=== PATIENT | female | born 1990 | race Caucasian/White ===

== ENCOUNTER 2023-04-01 13:40 | Emergency (ER) | payer SELFPAY ==
[~2023-04-01] VITALS: Ht 157.5 cm; Wt 69.0 kg
[2023-04-01] VITALS (8 sets, daily range): BP systolic 103–124; BP diastolic 49–71; PULSE 86–109; RESP 16; TEMP 98.6–99
[2023-04-01 16:22] LABS: BILIRUBIN,URINE NEGATIVE (Neg); CLARITY,URINE SLIGHTLY CLOUDY (Clear); COLOR,URINE YELLOW (Yellow); GLUCOSE, URINE NEGATIVE (Neg); KETONES,URINE NEGATIVE (Neg); LEUKOCYTE ESTERASE ,URINE MODERATE (Neg); NITRITES, URINE NEGATIVE (Neg); OCCULT BLOOD,URINE NEGATIVE (Neg); PH,URINE 6.5 (4.8-8.0); PROTEIN,URINE NEGATIVE (Neg)
[2023-04-01 16:23] LABS: URINE HCG POSITIVE (NEG)
[2023-04-01 16:28] LABS: UA COLLECTION TYPE VOIDED
[2023-04-01 16:29] LABS: BACTERIA,URINE FEW /HPF (Neg); MUCUS STRANDS NONE SEEN /LPF (Neg); RBC,URINE 0-2 /HPF (0-2); SQUAMOUS EPITHELIAL CELL,UR FEW /LPF (FEW); WBC CLUMPS,URINE FEW /HPF (NEGATIVE); WBC,URINE 30-50 /HPF (0-4)
[2023-04-01 16:36] LABS: WHITE BLOOD COUNT 4.3 X10'3 (4.5-11.0)
[2023-04-01 16:38] LABS: MEAN CORPUSCULAR HEMOGLOBIN 35.1 PG (27.0-31.0); MEAN CORPUSCULAR HGB CONC 33.9 g/dL (33.0-36.5); MEAN CORPUSCULAR VOLUME 103.5 FL (78-98); PLATELET COUNT 209 X10'3 (140-440); RED BLOOD COUNT 1.56 X10'6 (4.20-5.60); RED CELL DISTRIBUTION WIDTH 13.5 % (11.5-14.5)
[2023-04-01 16:47] LABS: ALANINE AMINOTRANSFERASE 45 U/L (12-78); ALBUMIN 3.5 G/DL (3.4-5.0); ALBUMIN/GLOBULIN RATIO 0.9 (1.1-1.5); ALKALINE PHOSPHATASE 92 IU/L (46-116); ANION GAP 12 (8-16); ASPARTATE AMINO TRANSFERASE 50 U/L (10-37); BILIRUBIN,TOTAL 0.4 MG/DL (0.1-1.0); BLOOD UREA NITROGEN 9 MG/DL (7-18); CHLORIDE 103 MMOL/L (99-107); GLUCOSE 89 MG/DL (70-104); LIPASE 36 U/L (16-77); MAGNESIUM 1.8 MG/DL (1.5-2.4); POTASSIUM 3.7 MMOL/L (3.5-5.1); SODIUM 139 MMOL/L (135-145); TOTAL CARBON DIOXIDE 24.5 MMOL/L (24-32); TOTAL PROTEIN 7.4 G/DL (6.4-8.2); eCRCL 107 ML/MIN; eGFR > 90 ML/MIN
[2023-04-01 16:49] LABS: HEMATOCRIT 16.1 % (35.0-45.0); HEMOGLOBIN 5.5 g/dl (12.0-16.0)
[2023-04-01 16:52] LABS: PLATELET ESTIMATE NORMAL; TOTAL CELLS COUNTED 100
[2023-04-01 16:53] LABS: LARGE PLATELETS FEW; STOMATOCYTES 1+
[2023-04-01 16:54] LABS: HYPOCHROMASIA 1+
[2023-04-01 17:45] LABS: BETA HCG,QUANTITATIVE 18 mIU/ml
[2023-04-01] MEDS ORDERED: acetaminophen 325mg tablet PO STA (19:38)
[2023-04-02 00:04] VITALS: BP 115/64; PULSE 84; RESP 16; TEMP 98.8
[2023-04-02] MEDS ORDERED: cephalexin 250mg capsule PO ONE (00:05)
[2023-04-02] MEDS ORDERED: CEPH-585 PO (00:08)
[2023-04-02 00:38] VITALS: BP 114/72; PULSE 91; RESP 16; TEMP 98.7
[2023-04-02 00:48] VITALS: BP 114/72; PULSE 93; RESP 16; TEMP 98.7; O2SAT 99
[2023-04-09 10:48] LABS: OCCULT BLOOD STOOL NEGATIVE (Neg)
== END 2023-04-02 00:51 | disposition home or self-care (01) ==
LOC: ER 13:41
DX: O99.019 Anemia complicating pregnancy, unspecified trimester (principal); R51.9 Headache, unspecified; R06.02 Shortness of breath; Z3A.00 Weeks of gestation of pregnancy not specified
CPT/HCPCS: 36415; 36430; 70450; 71045; 76801; 76830; 80053; 81001; 81025; 83690; 83735; 84702; 85007; 85025; 86885; 86920; 87088; 99291; J7050; P9016; 82272; 99285